=== PATIENT | female | born 1975 | race Caucasian/White ===

== ENCOUNTER → 2017-08-18 | Outpatient (CLI) | payer OTHER ==
[~2017-08-18] MED LIST: LISI-519 PO; OXYC1TAB63 PO
[2017-08-18 13:54] LABS: AUTOMATED NEUTROPHIL # 5.9 TH/MM3 (1.8-7.7); BASOPHIL # 0.1 TH/MM3 (0-0.2); BASOPHIL % 0.6 % (0.0-2.0); EOSINOPHIL # 0.3 TH/MM3 (0-0.4); HEMATOCRIT 39.6 % (35.0-46.0); HEMOGLOBIN 13.5 GM/DL (11.6-15.3); LYMPH % 25.9 % (9.0-44.0); LYMPHOCYTE # 2.4 TH/MM3 (1.0-4.8); MEAN CELL VOLUME 85.2 FL (80.0-100.0); MONO % 6.9 % (0.0-8.0); MONOCYTE # 0.6 TH/MM3 (0-0.9); NEUT % 63.6 % (16.0-70.0); PLATELET COUNT 293 TH/MM3 (150-450); RED BLOOD COUNT 4.65 MIL/MM3 (4.00-5.30); RED CELL DISTRIBUTION WIDTH 12.8 % (11.6-17.2); WHITE BLOOD COUNT 9.3 TH/MM3 (4.0-11.0)
[2017-08-18 14:18] LABS: ALBUMIN 4.2 GM/DL (3.4-5.0); ALT (GPT) 56 U/L (10-53); AST (GOT) 21 U/L (15-37); BICARBONATE 28.1 MEQ/L (21.0-32.0); BLOOD UREA NITROGEN 9 MG/DL (7-18); CALCIUM 9.4 MG/DL (8.5-10.1); CHLORIDE 106 MEQ/L (98-107); CREATININE 0.77 MG/DL (0.50-1.00); GLOMERULAR FILTRATION RATE 83 ML/MIN (>89); GLUCOSE,FASTING 103 MG/DL (74-99); SODIUM (NA) 140 MEQ/L (136-145)
[2017-08-18 14:20] LABS: ALKALINE PHOSPHATASE 175 U/L (45-117); TOTAL BILIRUBIN ADULT 0.3 MG/DL (0.2-1.0); TOTAL PROTEIN 8.5 GM/DL (6.4-8.2)
== END ==
LOC: CPRE 13:06
PROVIDERS: ATTEND Obstetrics & Gynecology Gynecologic Oncology
DX: Z01.812 Encounter for preprocedural laboratory examination (principal); N85.02 Endometrial intraepithelial neoplasia [EIN]
CPT/HCPCS: 36415; 80053; 84702; 85025; 85610; 85730

== ENCOUNTER 2017-08-23 05:28 | Observation (INO) | payer OTHER ==
[~2017-08-23] VITALS: Ht 172.7 cm; Wt 98.0 kg
[~2017-08-23 05:28] MED LIST changes: -OXYC1TAB63 PO
[2017-08-23] MEDS ORDERED: SODIUM CHLORID 0.9% 500 ML IV PRN (06:00)
[2017-08-23] MEDS ORDERED: METOPROLOL TARTRATE 25 MG TAB PO PRN (06:00)
[2017-08-23] MEDS ORDERED: CHLORHEXIDINE GLUCONATE 2 % 1 PACK (2 CLOTHS) TOPICAL PRN (06:00)
[2017-08-23] MEDS ORDERED: POVIDONE IODINE 5% (ANTISEPSIS KIT) 4 APPLICATIONS EACH NARE PRN (06:00)
[2017-08-23] MEDS ORDERED: HEPARIN SODIUM - SQ 10,000 UNITS/ML VIAL SQ SCH (06:00)
[2017-08-23] MEDS ORDERED: LACTATED RINGER'S 1000 ML IV PRN (06:00)
[2017-08-23] MEDS ORDERED: ceFAZolin 2 GM/DEX PREMIX 50 ML IV SCH (06:00)
[2017-08-23] MEDS ORDERED: ACETAMINOPHEN 1000 MG/100 ML 100 ML IV ONE (06:18)
[2017-08-23] MEDS ORDERED: LIDOCAINE 1%/EPINEPHrine 1:100,000 SOLN 30 ML VIAL ONE (06:49)
[2017-08-23] MEDS ORDERED: SUGAMMADEX SODIUM 200 MG/2 ML VIAL IV PUSH ONE (09:12)
[2017-08-23] MEDS ORDERED: LORazepam 0.5 MG TAB PO PRN (10:45)
[2017-08-23] MEDS ORDERED: SODIUM CHLORIDE 0.9% FLUSH 10 ML FLUSH IV FLUSH PRN (10:45)
[2017-08-23] MEDS ORDERED: METOCLOPRAMIDE HCL 10 MG/2 ML VIAL IM PRN (10:45)
[2017-08-23] MEDS ORDERED: oxyCODONE/ACETAMINOPHEN 5 MG/325 MG TAB PO PRN ×2 (10:45)
[2017-08-23] MEDS ORDERED: diphenhydrAMINE HCL 25 MG CAP PO PRN (10:45)
[2017-08-23] MEDS ORDERED: DO NOT ADM ANY ANTICOAGULANT DRUGS PRN (10:51)
[2017-08-23] MEDS ORDERED: MIDAZOLAM HCL 2 MG/2 ML VIAL ONE (10:56)
[2017-08-23] MEDS ORDERED: ONDANSETRON ODT 4 MG TAB PO PRN (11:15)
[2017-08-23] MEDS ORDERED: HYDROmorphone HCL PF 2 MG/ML VIAL IV PUSH PRN (11:15)
[2017-08-23] MEDS: D5-1/2 NS + KCL 20 MEQ INJ 1,000 ML IV SCH ×2 (11:15→20:49)
[2017-08-23] MEDS ORDERED: *morphine SULFATE 8 MG/ML PERIprocedure ONLY ONE (11:16)
[2017-08-23] MEDS ORDERED: ONDANSETRON HCL 4 MG/2 ML VIAL ONE (11:16)
[2017-08-23] MEDS: KETOROLAC TROMETHAMINE 30 MG/ML (IVP) VIAL IVP SCH ×3 (11:33→23:02)
[2017-08-23] MEDS ORDERED: PHENYLEPH/NS 1000 MCG/10 ML SYR IV ONE (12:14)
[2017-08-23] MEDS ORDERED: ROCURONIUM INJ 50 MG/5 ML SYRINGE IV PUSH ONE (12:14)
[2017-08-23] MEDS ORDERED: ONDANSETRON HCL 4 MG/2 ML VIAL IV PUSH ONE (12:14)
[2017-08-23] MEDS ORDERED: LIDOCAINE HCL 1% PF 5 ML SYRINGE OTHER ONE (12:14)
[2017-08-23] MEDS ORDERED: VECURONIUM BROMIDE 20 MG VIAL IV ONE (12:14)
[2017-08-23] MEDS ORDERED: PROPOFOL 200 MG/20 ML AMP IV ONE (12:14)
[2017-08-23] MEDS ORDERED: LACTATED RINGER'S 1000 ML INJ 1,000 ML IV ONE (12:14)
[2017-08-23] MEDS ORDERED: DEXAMETHASONE SOD PHOS 4 MG/ML VIAL IV ONE (12:14)
[2017-08-23] MEDS ORDERED: GLYCOPYRROLATE 1 MG/5 ML SYRINGE IV PUSH ONE (12:14)
--- NOTE | 2017-08-23 12:16 | MP ---
cc: Kavya Rogers MD, Zachary S MD O'Donnell, Erica DATE OF OPERATION: DATE OF PROCEDURE: 08/23/2017. PREOPERATIVE DIAGNOSES: 1. Complex atypical endometrial hyperplasia. 2. History of endometriosis. 3. By history, bilateral salpingo-oophorectomy and unilateral oophorectomy. POSTOPERATIVE DIAGNOSES: 1. Complex atypical endometrial hyperplasia. 2. History of endometriosis. 3. Bilateral residual ovarian tissue and fallopian tube intact on the left side. 4. Relatively minimal adhesions. PROCEDURE: Robotic-assisted laparoscopic hysterectomy, bilateral salpingo-oophorectomy, lysis of adhesions. SURGEON: Kavya Rogers MD BID MANAGER: [employer] assistant. ANESTHESIA: General endotracheal anesthesia. ESTIMATED BLOOD LOSS: 100 mL IV FLUIDS: 2000 mL URINE OUTPUT: 250 mL INDICATIONS FOR PROCEDURE: This is a 42-year-old female. Endometrial biopsy showed complex atypical hyperplasia. She had previously been treated for endometriosis, had prior surgeries. By history, she had a bilateral salpingectomy and underwent in vitro fertilization and she thought that one of the ovaries had been removed, all as part of infertility treatment and/or treatment of endometriosis. She continues to have pelvic symptomatology and given the complex atypical hyperplasia diagnosis, we have counseled her. She completed recent Depo Lupron short-term course of therapy and presents now for surgical management. She was seen again in the preop holding area with family members. The findings were reviewed. The plan of care was discussed. Questions were asked and answered. She expressed good understanding and agreed to move forward with surgery. FINDINGS: Upon entry into the peritoneal cavity, it was noted that the adhesions were relatively minimal. The peritoneal surfaces were smooth. The liver and diaphragm edges were smooth. The large, small bowel and adjacent mesentery were without implants. There was no visible or palpable retroperitoneal adenopathy. There were some adhesions against the left pelvic sidewall with the sigmoid colon and some adhesions with the left adnexa into the pelvic sidewall. Minimal filmy adhesions between the adnexa and the right pelvic sidewall. The uterus grossly appeared normal. There are fine granular white implants in the cul-de-sac posterior uterus that had the appearance of endosalpingiosis. There were no changes to suggest malignancy and if were endometriosis, it did not appear active. None of the implants were greater than 1 mm. Frozen section analysis of the uterus showed there to be a normal appearing endometrium flat, no polypoid tissue, no growth, certainly no evidence of malignancy. No evidence of invasion. There was some adenomyosis noted. DESCRIPTION OF PROCEDURE: She was taken to the operating room and placed in dorsal lithotomy position, after general endotracheal anesthesia was administered. A timeout was undertaken. She was identified by sight recognition, hospital ID kera and the proposed procedure was reviewed and confirmed. She was carefully positioned in padded Ilir stirrups. Her arms were padded and secured to the sides. She was further secured to the operating table with egg crate padding and tape in across chest over the shoulder fashion. All sites noted to be properly aligned with no malalignment or pressure points. She was prepped and draped in sterile fashion, placed in lithotomy position. The cervix was grasped. The uterine cavity was sounded to 7 cm. Cervix was dilated and a standard VCare manipulator was inserted and secured in usual fashion. Styles catheter placed in the bladder. She was returned to low lithotomy position. Change of sterile gloves was undertaken. We confirmed that an orogastric tube was in the stomach on suction. With manual elevation of the abdominal wall and direct laparoscopic visualization, a 5 mm cannula introduced into the left upper quadrant and an atraumatic entry was confirmed. Carbon dioxide gas was insufflated. A 8 mm cannula was placed in the right upper quadrant, left lateral quadrant and a 12 mm cannula placed in the midline above the umbilicus. The original 5 mm cannula exchanged for an 8 mm cannula. Some bleeding was noted at the left lateral cannula, so the cannula was removed. 3-0 Vicryl subcutaneous stitches were placed in the deep space, which rendered it hemostatic and the cannula was reintroduced. She was placed in Trendelenburg position. The anatomy was surveyed with findings as described above. Peritoneal washings were obtained for cytology. The small bowel were folded back on the mesenteric root. Three Ray-Alisson sponges were placed around the root of the small bowel mesentery. The robotic system was brought into the operative field, and attached in the usual fashion. Monopolar scissors, fenestrated bipolar forceps and ProGrasp manipulator was placed in arms number 1, 2 and 3 respectively, and I took my place at the surgeon's console. Right round ligament, isolated, cauterized, transected. The anterior and posterior leafs of the broad ligament were opened. The right ureter was identified. Right infundibulopelvic ligament was isolated to the level above the pelvic brim. The intervening peritoneum was opened. The infundibulopelvic ligament was cauterized and transected. The posterior peritoneum was opened along the right side of the uterus and cervix and the right vesicouterine peritoneum was dissected off the lower uterine segment and cervix. The right uterine vessels were skeletonized. The right uterine vessels were cauterized and transected as were the cardinal, paracervical and uterosacral ligaments, thereby freeing the attachments along the right side of the uterus and cervix. Attention was directed toward the left side where the left round ligament was isolated, cauterized and transected. The anterior and posterior leafs of the broad ligament were opened. Adhesions were taken down, mobilizing the colon from its attachments against the left pelvic sidewall and the retroperitoneal dissection was continued allowing identification of the left ureter. The infundibulopelvic ligament was isolated. The intervening peritoneum was opened. The infundibulopelvic ligament was isolated above the level of the pelvic brim where it was cauterized and transected. Posterior peritoneum opened along the left side of the uterus and cervix and the left vesicouterine peritoneum dissected off the lower uterine segment and cervix. The left uterine vessels were skeletonized. Left uterine vessels were now cauterized and transected as were the cardinal, paracervical and uterosacral ligaments, thereby freeing the attachments along the left side of the uterus and cervix. A circumferential colpotomy was performed the cervix from the upper vagina and the specimen was withdrawn transvaginally, which included uterus, cervix and what appeared to be left tube and ovary and right tube with possible remnant fallopian tube. A pneumooccluder balloon was placed in the vagina to maintain pneumoperitoneum. Instruments 1 and 3 were exchanged for needle drivers as 0 Vicryl suture was introduced. The vaginal cuff was closed starting at the left corner for full-thickness closure, incorporating the posterior peritoneum and edge of the uterosacral ligament and tied via instrument tie. The closure was held on countertraction as a running full thickness continuous closure was carried across the vaginal cuff to the contralateral corner, which was similarly fixed, secured and tied. The needle was cut and removed. The pelvis was thoroughly irrigated. Small bleeders were rendered hemostatic with bipolar cautery. The integrity of the bladder was confirmed by filling it with saline dyed with methylene blue. There was a good margin between the edge of the bladder and the vaginal cuff suture line. The bladder distended nicely under pressure. There were no areas of thinning, no visible blue, certainly no extravasation of dye. There was good peristalsis of ureters bilaterally and the bladder was drained. Pathology came back as above, showing only benign findings and therefore, it was felt that all reasonable surgical objectives had been completed. The robotic instruments were removed. The robotic system was disengaged from the operative field. I reentered the bedside under sterile condition. Each of the 3 Ray-Alisson sponges that had been placed in the peritoneal cavity were removed. They were removed individually and inspected and noted to be removed in their entirety. Visual inspection confirmed there were no remaining foreign objects in the peritoneal cavity. Preliminary counts were correct and the 12 mm fascial defect was closed with interrupted 0 Vicryl sutures using fascia closure needle apparatus. These sutures were tied securely which rendered the fascia completely airtight and hemostatic. The remaining cannulas were withdrawn. Carbon dioxide gas was removed. A 3-0 Vicryl subcutaneous, 3-0 Vicryl subcuticular and Steri-Strips were used to close these incisions. All sites were hemostatic and well approximated. She was returned to dorsal lithotomy position. Pelvic exam confirmed the vaginal cuff was well-supported, hemostatic. There were no vaginal lacerations. There were no remaining foreign objects in the vagina and final counts were correct. She was returned to dorsal supine position and was pending reversal of anesthesia when I left the operating room to precede her to the postanesthesia care unit. MD CAROLE Feldman , 11:25 AM , 12:15 PM
[2017-08-23] MEDS ORDERED: *morphine SULFATE 4 MG/ML PERIprocedure ONLY ONE (13:18)
[2017-08-23 15:00] VITALS: BP 115/67; PULSE 83; RESP 18; TEMP 98.2; O2SAT 97
--- NOTE | 2017-08-23 15:00 | PD.ONC.PN ---
Subjective Subjective Remarks post op note: pt is resting in bed with family at bedside c/o little nausea pain controlled still sleepy Objective Data Date Time Temp Pulse Resp B/P (MAP) Pulse Ox O2 Delivery O2 Flow Rate FiO2 08/23/17 13:00 84 16 112/62 (79) 97 Nasal Cannula 2 08/23/17 12:30 82 16 116/62 (80) 98 Nasal Cannula 2 08/23/17 12:00 82 16 107/58 (74) 97 Nasal Cannula 2 08/23/17 11:45 80 16 104/57 (73) 97 Nasal Cannula 2 08/23/17 11:30 88 16 101/58 (72) 97 Nasal Cannula 2 08/23/17 11:15 84 16 100/59 (73) 97 Nasal Cannula 2 08/23/17 11:00 80 16 109/58 (75) 97 Nasal Cannula 2 08/23/17 10:49 98.8 88 16 114/66 (82) 99 Nasal Cannula 2 08/23/17 06:06 99.0 85 16 121/80 (94) 98 08/23/17 08/23/17 08/23/17 07:00 15:00 23:00 Intake Total 2500 ml Output Total 350 ml Balance 2150 ml Administered Medications Medications (Trade) Dose Ordered Sig/Ilene Route PRN Reason Start Time Stop Time Status Last Admin Dose Admin Lactated Ringer's 1,000 ml @ 30 mls/hr Q24H PRN IV SEE LABEL COMMENTS 08/23/17 06:00 08/26/17 05:59 08/23/17 06:00 Povidone Iodine (Betadine 5% Antisepsis Kit) 1 applic INSTALLER HELPER PRN EACH NARE SEE LABEL COMMENTS 08/23/17 06:00 08/26/17 05:59 08/23/17 06:15 Chlorhexidine Gluconate (Chlorhexidine 2% Cloth) 3 pack INSTALLER HELPER PRN TOPICAL SEE LABEL COMMENTS 08/23/17 06:00 08/26/17 05:59 08/23/17 05:45 Heparin Sodium (Porcine) (Heparin Inj) 5,000 units INSTALLER HELPER SQ 08/23/17 06:00 08/24/17 05:59 08/23/17 06:20 Potassium Chloride/Dextrose/ Sod Cl 1,000 ml @ 125 mls/hr Q8H IV 08/23/17 11:30 08/23/17 11:15 Ketorolac Tromethamine (Toradol Inj) 30 mg Q6H IVP 08/23/17 12:00 08/24/17 06:01 08/23/17 11:33 Objective Remarks GENERAL: Well-nourished, well-developed patient. SKIN: Warm and dry. HEAD: Normocephalic. EYES: No scleral icterus. No injection or drainage. CARDIOVASCULAR: Regular rate and rhythm without murmurs. RESPIRATORY: Breath sounds equal bilaterally. No accessory muscle use. GASTROINTESTINAL: Abdomen soft, SS are c/d/i no drainage EXTREMITIES: teds and scds MUSCULOSKELETAL: Adequate muscle tone. NEUROLOGICAL: No obvious focal deficit.sleepy PSYCHIATRIC: Appropriate mood and affect; insight and judgment normal. Assessment/Plan Problem List: (1) Post-operative state ICD Codes: Z98.890 - Other specified postprocedural states Status: Acute Plan: post op orders in EMR Toradol for pain, scheduled Percocet for pain, PRN Styles to straight drain ADAT, OOB to chair IS to bedside Reglan for vomiting PRN anticipate discharge tomorrow Luba Valenzuela Aug 23, 2017 15:00
[2017-08-23] MEDS ORDERED: METOCLOPRAMIDE HCL 10 MG/2 ML VIAL IV PRN (15:15)
[2017-08-23 20:09] VITALS: PULSE 107
[2017-08-23] MEDS: SODIUM CHLORIDE 0.9% FLUSH 10 ML FLUSH IV FLUSH SCH (20:49)
[2017-08-23 20:52] VITALS: BP 120/66; PULSE 101; RESP 18; TEMP 98.9; O2SAT 97
[2017-08-23 23:00] VITALS: BP 99/51; PULSE 103; RESP 18; TEMP 98.7; O2SAT 96
[2017-08-24 00:01] VITALS: PULSE 100
[2017-08-24] MEDS: D5-1/2 NS + KCL 20 MEQ INJ 1,000 ML IV SCH (02:28)
[2017-08-24 03:49] VITALS: BP 106/68; PULSE 98; RESP 20; TEMP 98.7; O2SAT 97
[2017-08-24 04:08] VITALS: PULSE 96
[2017-08-24] MEDS: KETOROLAC TROMETHAMINE 30 MG/ML (IVP) VIAL IVP SCH (06:13)
[2017-08-24] MEDS ORDERED: OXYC1TAB63 PO (06:47)
[2017-08-24] MEDS: SODIUM CHLORIDE 0.9% FLUSH 10 ML FLUSH IV FLUSH SCH (07:53)
[2017-08-24 08:00] VITALS: PULSE 100
[2017-08-24 08:04] LABS: AUTOMATED NEUTROPHIL # 13.7 TH/MM3 (1.8-7.7); BASOPHIL # 0.1 TH/MM3 (0-0.2); BASOPHIL % 0.3 % (0.0-2.0); EOSINOPHIL # 0.1 TH/MM3 (0-0.4); EOSINOPHIL % 0.5 % (0.0-4.0); HEMATOCRIT 36.7 % (35.0-46.0); HEMOGLOBIN 12.4 GM/DL (11.6-15.3); LYMPH % 14.8 % (9.0-44.0); LYMPHOCYTE # 2.6 TH/MM3 (1.0-4.8); MEAN CELL VOLUME 85.2 FL (80.0-100.0); MEAN CORPUSCULAR HEMOGLOBIN 28.8 PG (27.0-34.0); MEAN CORPUSCULAR HGB CONC 33.8 % (32.0-36.0); MEAN PLATELET VOLUME 8.4 FL (7.0-11.0); MONO % 5.3 % (0.0-8.0); MONOCYTE # 0.9 TH/MM3 (0-0.9); NEUT % 79.1 % (16.0-70.0); PLATELET COUNT 240 TH/MM3 (150-450); RED BLOOD COUNT 4.31 MIL/MM3 (4.00-5.30); RED CELL DISTRIBUTION WIDTH 12.7 % (11.6-17.2); WHITE BLOOD COUNT 17.3 TH/MM3 (4.0-11.0)
[2017-08-24 08:28] VITALS: BP 119/69; PULSE 103; RESP 18; TEMP 98.3; O2SAT 98
[2017-08-24 08:33] LABS: BICARBONATE 25.1 MEQ/L (21.0-32.0); CALCIUM 8.5 MG/DL (8.5-10.1); CREATININE 0.78 MG/DL (0.50-1.00)
[2017-08-24] MEDS ORDERED: LISINOPRIL 5 MG TAB PO SCH (09:00)
--- NOTE | 2017-08-24 09:34 | MD ---
cc: Kavya Rogers MD, Zachary S MD O'Donnell,Debby DATE OF DISCHARGE: 08/24/2017 PROCEDURE: 08/23/2017. Robotic-assisted laparoscopic hysterectomy, bilateral salpingo-oophorectomy, lysis of adhesions. DIAGNOSIS: Complex atypical endometrial hyperplasia and endometriosis. HOSPITAL COURSE: She did well in the hospital course, remained hemodynamically stable, tolerated oral intake. Styles catheter removed pending voiding. Ins and outs 4670/2450. LABS: Pending at the time of this dictation. PHYSICAL EXAMINATION: VITAL SIGNS: Afebrile, pulse 80-107, blood pressure 99-120/51-67, O2 saturations greater than or equal to 97%. GENERAL: In no acute distress. Some discomfort consistent with surgery. LUNGS: Clear to auscultation. Mild basilar rales. CARDIOVASCULAR: Regular rate and rhythm. ABDOMEN: Soft. Incision is clean and dry. GYNECOLOGIC: No bleeding. EXTREMITIES: Nontender. ASSESSMENT: Postoperative day number 1, doing well in early postoperative period. SURGICAL FINDINGS: Preliminary pathology were reviewed. DISCHARGE INSTRUCTIONS: Activities and restrictions discussed. Questions were asked and answered. She expressed good understanding. PLAN: Anticipate she will meet criteria for discharge to home today. He is to call our office to ensure she has a followup scheduled within 2 weeks. She is to resume prior medication and she will have a prescription for Percocet for pain and she is to contact our office sooner should she have any questions or problems. MD DAVY Feldman/AGUSTÍN , 06:52 AM , 09:34 AM
== END 2017-08-24 12:15 | disposition home or self-care (01) ==
LOC: HSDC 05:28 → HSDI 10:44 → HCIN 13:38
PROVIDERS: ADMIT Obstetrics & Gynecology Gynecologic Oncology; ATTEND Obstetrics & Gynecology Gynecologic Oncology
DX: N85.00 Endometrial hyperplasia, unspecified (principal); N73.6 Female pelvic peritoneal adhesions (postinfective)
CPT/HCPCS: 00840; 58552; 80048; 85025; 86850; 86900; 86901; 88112; 88307; 88329; 94150; 96361; 96374; 96375; 96376; G0378; J0131; J1100; J1644; J1885; J2250; J2270; J2370; J2405; J2765; J3010; J3480; J7120; 88331